=== PATIENT | female | born 1955 | race Caucasian/White ===

== ENCOUNTER → 2017-06-03 | Outpatient (CLI) | payer BC ==
--- NOTE | 2017-06-04 17:56 | WOMENS IMAGING REPORT ---
EXAM DESCRIPTION: 3D SCREENING MAMMO BILAT COMPLETED DATE/TIME: 06/03/2017 8:01 am REASON FOR STUDY: ROUTINE SCREENING; Z12.31 Z12.31 ENCNTR SCREEN MAMMOGRAM FOR MALIGNANT NEOPLASM O F JASWANT COMPARISON: Multiple since 2010 TECHNIQUE: Standard craniocaudal and mediolateral oblique views of each breast recorded using digita l acquisition and breast tomosynthesis. LIMITATIONS: None. FINDINGS: No masses, calcifications or architectural distortion. No areas of suspicion. Read with the assistance of CAD. .[facility] - R2 Cenova Version 1.3 .[facility] - R2 Cenova Version 1.3 .[facility] - R2 Cenova Version 2.4 .[facility]2 Cenova Version 2.4 .[facility] - R2 Blood Tester Fowl Version 9.2 IMPRESSION: NORMAL MAMMOGRAM. BIRADS 1. BREAST DENSITY: b. There are scattered areas of fibroglandular density. BIRAD: 1 NEGATIVE RECOMMENDATION: ROUTINE SCREENING Please continue yearly bilateral screening tomosynthesis in May 2018 COMMENT: The patient has been notified of the results by letter per [place] requirements. Additional no tification policies are in place for contacting patient with suspicious or incomplete findings. Quality ID #[id number]: The [employer] recommends an annual screening mammogram for women aged 40 years or over. This facility utilizes a reminder system to ensure that all patients receive reminder letters, and/or direct phone calls for appointments. This includes reminders for routine scr eening mammograms, diagnostic mammograms, or other Breast Imaging Interventions when appropriate. Th is patient will be placed in the appropriate reminder system. The [employer] (ACR) has developed recommendations for screening MRI of the breast s in certain patient populations, to be used in conjunction with mammography. Breast MRI surveillanc e may be appropriate for women with more than 20% lifetime risk of developing breast cancer as deter mined by genetic testing, significant family history of the disease, or history of mantle radiation f or Hodgkins Disease. ACR Practice Guidelines 2008. DBT Technology DBT is a type of tomographic mammography. With conventional mammography, overlapping breast tissue ma y make lesions difficult to detect, even with good compression. DBT uses an x-ray tube that rotates a round the breast, taking images at different angles. These images are then combined to create thin sl ices of the breast that the radiologist can view as a 3D reconstruction. The [employer] unit can perform full-field digital mammograms (2D imaging); or DBT (3D imaging); or both, in a combination mode that quickly performs both the mammogram and the tomosynthesis scan while the breast is still compressed. PQRS 6045F: Fluoroscopic imaging is not utilized for breast tomosynthesis. TECHNICAL DOCUMENTATION: FINDING NUMBER: (1) ASSESSMENT: (1) JOB ID: [id number] [employer]- All Rights Reserved
== END ==
LOC: WI 07:29
PROVIDERS: ATTEND Family Medicine
DX: Z12.31 Encounter for screening mammogram for malignant neoplasm of breast (principal)
CPT/HCPCS: 77063; G0202; 77067

== ENCOUNTER 2017-08-11 15:48 | Emergency (ER) | payer BC ==
--- NOTE | 2017-08-11 16:25 | ER Document Report ---
ED Medical Screen (RME) - General Chief Complaint: Abdominal Pain Stated Complaint: ABDOMINAL PAIN Time Seen by Provider: 08/11/17 16:11 Mode of Arrival: Ambulatory Information source: Patient Notes: 61-year-old female presents with complaints of abdominal pain constipation vomiting. She notes symptoms started this morning, patient has been on opioids for knee replacement I have greeted and performed a rapid initial assessment of this patient. A comprehensive ED assessment and evaluation of the patient, analysis of test results and completion of the medical decision making process will be conducted by additional ED providers. PHYSICAL EXAMINATION: GENERAL: Well-appearing, well-nourished and tearful HEAD: Atraumatic, normocephalic. EYES: Pupils equal round extraocular movements intact, conjunctiva are normal. ENT: Nares patent NECK: Normal range of motion LUNGS: No respiratory distress Musculoskeletal: Normal range of motion NEUROLOGICAL: Normal speech, normal gait. PSYCH: Normal mood, normal affect. SKIN: Warm, Dry, normal turgor, no rashes or lesions noted. TRAVEL OUTSIDE OF THE [place] IN LAST 30 DAYS: No - Related Data Allergies/Adverse Reactions: No Known Allergies Allergy (Verified 08/11/17 15:50) Home Medications: Current Home Medications Bupropion HCl [Wellbutrin Xl 300mg 24hr Tablet] 1 tab PO DAILY 08/11/17 [History ] Hydrocodone/Acetaminophen [Hydrocodone-Acetamin 2.5-325] 1 tab PO BID 08/11/17 [ History] Sennosides [Senna Laxative] 1 tab PO DAILY PRN 08/11/17 [History] Past Medical History - Social History Frequency of alcohol use: Rare Drug Abuse: None - Past Medical History Cardiac Medical History: Reports: Hx Hypertension - MEDICATED Denies: Hx Heart Attack Pulmonary Medical History: Denies: Hx Asthma Neurological Medical History: Denies: Hx Cerebrovascular Accident, Hx Seizures Renal/ Medical History: Denies: Hx Peritoneal Dialysis GI Medical History: Denies: Hx Hepatitis, Hx Hiatal Hernia, Hx Ulcer Infectious Medical History: Denies: Hx Hepatitis Past Surgical History: Reports: Hx Appendectomy, Hx Hysterectomy, Hx Orthopedic Surgery - right knee replaced, Hx Tonsillectomy. Denies: Hx Mastectomy, Hx Open Heart Surgery, Hx Pacemaker Physical Exam - Vital signs Vitals: Temp Pulse Resp BP Pulse Ox 98.0 F 102 H 16 145/89 H 98 08/11/17 15:50 08/11/17 15:50 08/11/17 15:50 08/11/17 15:50 08/11/17 15:50 Course - Vital Signs Vital signs: Temp Pulse Resp BP Pulse Ox 98.0 F 102 H 16 145/89 H 98 08/11/17 15:50 08/11/17 15:50 08/11/17 15:50 08/11/17 15:50 08/11/17 15:50
[2017-08-11 16:39] LABS: ABSOLUTE LYMPHOCYTES (AUTO) 0.9 10^3/uL (0.5-4.7); ABSOLUTE MONOCYTES (AUTO) 0.3 10^3/uL (0.1-1.4); ABSOLUTE NEUT (AUTO) 6.3 10^3/uL (1.7-8.2); BASOPHILS % (AUTO) 0.4 % (0-2); EOSINOPHILS % (AUTO) 0.3 % (0-6); HEMATOCRIT 38.2 % (36.0-47.0); HEMOGLOBIN 13.1 g/dL (12.0-15.5); HGB HCT DIFFERENCE 1.1; LYMPHOCYTES % (AUTO) 11.8 % (13-45); MEAN CORPUSCULAR HEMOGLOBIN 29.6 pg (27.0-33.4); MEAN CORPUSCULAR HGB CONC 34.2 g/dL (32.0-36.0); MEAN CORPUSCULAR VOLUME 87 fl (80-97); MONOCYTES % (AUTO) 4.6 % (3-13); RED BLOOD COUNT 4.42 10^6/uL (3.72-5.28); SEGMENTED NEUTROPHILS % (AUTO) 82.9 % (42-78); WHITE BLOOD COUNT 7.6 10^3/uL (4.0-10.5)
[2017-08-11] MEDS ORDERED: MORPHINE SULFATE 10 MG/ML INJ IV ONE (16:39)
[2017-08-11] MEDS ORDERED: NORMAL SALINE 1000 ML 1,000 ML IV ONE (16:39)
[2017-08-11] MEDS ORDERED: ONDANSETRON HCL INJ/PF 4 MG/2 ML SDV IV ONE (16:39)
[2017-08-11 16:57] LABS: ALANINE AMINOTRANSFERASE 29 U/L (9-52); ALBUMIN 4.9 g/dL (3.5-5.0); ALKALINE PHOSPHATASE 123 U/L (38-126); ANION GAP 15 (5-19); ASPARTATE AMINO TRANSFERASE 21 U/L (14-36); BILIRUBIN,DIRECT 0.2 mg/dL (0.0-0.4); BILIRUBIN,TOTAL 0.6 mg/dL (0.2-1.3); BLOOD UREA NITROGEN 13 mg/dL (7-20); CALCIUM 10.4 mg/dL (8.4-10.2); CARBON DIOXIDE 26 mmol/L (22-30); CHLORIDE 95 mmol/L (98-107); CREATININE RESULT 0.51 mg/dL (0.52-1.25); GLUCOSE 125 mg/dL (75-110); LIPASE 66.6 U/L (23-300); SODIUM 135.9 mmol/L (137-145); TOTAL PROTEIN 7.7 g/dL (6.3-8.2)
--- NOTE | 2017-08-11 17:34 | ER Document Report ---
ED General - General Chief Complaint: Abdominal Pain Stated Complaint: ABDOMINAL PAIN Time Seen by Provider: 08/11/17 16:11 Mode of Arrival: Ambulatory Information source: Patient Notes: 61-year-old female presents with complaints of constipation nausea vomiting over the past day. Patient notes symptoms started this morning, denies any fevers or chills, denies any similar episodes. Patient has never had any abdominal surgeries and obstruction. Patient has been taking narcotics for knee replacement and believe she has become constipated from this. TRAVEL OUTSIDE OF THE [place] IN LAST 30 DAYS: No - HPI Onset: This morning Onset/Duration: Sudden Quality of pain: Cramping Severity: Mild Pain Level: 1 Associated symptoms: Nausea, Vomiting Exacerbated by: Food Relieved by: Denies Similar symptoms previously: No Recently seen / treated by doctor: No - Related Data Allergies/Adverse Reactions: No Known Allergies Allergy (Verified 08/11/17 15:50) Home Medications: Current Home Medications Bupropion HCl [Wellbutrin Xl 300mg 24hr Tablet] 1 tab PO DAILY 08/11/17 [History ] Hydrocodone/Acetaminophen [Hydrocodone-Acetamin 2.5-325] 1 tab PO BID 08/11/17 [ History] Sennosides [Senna Laxative] 1 tab PO DAILY PRN 08/11/17 [History] Past Medical History - General Information source: Patient - Social History Smoking Status: Never Smoker Cigarette use (# per day): No Chew tobacco use (# tins/day): No Smoking Education Provided: No Frequency of alcohol use: Rare Drug Abuse: None Family History: Reviewed & Not Pertinent Patient has suicidal ideation: No Patient has homicidal ideation: No - Past Medical History Cardiac Medical History: Reports: Hx Hypertension - MEDICATED Denies: Hx Heart Attack Pulmonary Medical History: Denies: Hx Asthma Neurological Medical History: Denies: Hx Cerebrovascular Accident, Hx Seizures Renal/ Medical History: Denies: Hx Peritoneal Dialysis GI Medical History: Denies: Hx Hepatitis, Hx Hiatal Hernia, Hx Ulcer Infectious Medical History: Denies: Hx Hepatitis Past Surgical History: Reports: Hx Appendectomy, Hx Hysterectomy, Hx Orthopedic Surgery - right knee replaced, Hx Tonsillectomy. Denies: Hx Mastectomy, Hx Open Heart Surgery, Hx Pacemaker Review of Systems - Review of Systems Notes: REVIEW OF SYSTEMS: CONSTITUTIONAL : Denies fever, chills, or sweats. Denies recent illness. EENT: Denies eye, ear, throat, or mouth pain or symptoms. Denies nasal or sinus congestion or discharge. Denies throat, tongue, or mouth swelling or difficulty swallowing. CARDIOVASCULAR: Denies chest pain. Denies palpitations or racing or irregular heart beat. Denies ankle edema. RESPIRATORY: Denies cough, cold, or chest congestion. Denies shortness of breath, difficulty breathing, or wheezing. GASTROINTESTINAL: Patient admits to abdominal pain nausea vomiting constipation GENITOURINARY: Denies difficulty urinating, painful urination, burning, frequency, blood in urine, or discharge. FEMALE GENITOURINARY: Denies vaginal bleeding, heavy or abnormal periods, irregular periods. Denies vaginal discharge or odor. MUSCULOSKELETAL: Denies back or neck pain or stiffness. Denies joint pain or swelling. SKIN: Denies rash, lesions or sores. HEMATOLOGIC : Denies easy bruising or bleeding. LYMPHATIC: Denies swollen, enlarged glands. NEUROLOGICAL: Denies confusion or altered mental status. Denies passing out or loss of consciousness. Denies dizziness or lightheadedness. Denies headache. Denies weakness or paralysis or loss of use of either side. Denies problems with gait or speech. Denies sensory loss, numbness, or tingling. Denies seizures. PSYCHIATRIC: Denies anxiety or stress. Denies depression, suicidal ideation, or homicidal ideation. ALL OTHER SYSTEMS REVIEWED AND NEGATIVE. PHYSICAL EXAMINATION: GENERAL: Well-appearing, well-nourished and in no acute distress. HEAD: Atraumatic, normocephalic. EYES: Pupils equal round and reactive to light, extraocular movements intact, conjunctiva are normal. ENT: Nares patent, oropharynx clear without exudates. Moist mucous membranes. NECK: Normal range of motion, supple without lymphadenopathy LUNGS: Breath sounds clear to auscultation bilaterally and equal. No wheezes rales or rhonchi. HEART: Regular rate and rhythm without murmurs ABDOMEN: Soft, minimally tender in the left lower quadrant no rebound or guarding Female : deferred Musculoskeletal: Normal range of motion, no pitting or edema. No cyanosis. Ice pack on right knee NEUROLOGICAL: Cranial nerves grossly intact. Normal speech, normal gait. Normal sensory, motor exams PSYCH: Normal mood, normal affect. SKIN: Warm, Dry, normal turgor, no rashes or lesions noted. Dictation was performed using [employer] English voice recognition software Physical Exam - Vital signs Vitals: Temp Pulse Resp BP Pulse Ox 98.0 F 102 H 16 145/89 H 98 08/11/17 15:50 08/11/17 15:50 08/11/17 15:50 08/11/17 15:50 08/11/17 15:50 Course - Re-evaluation Re-evalutation: 08/11/17 17:35 My concern is for an obstruction, oral and IV contrast have been ordered 08/11/17 19:[address] no otherwise no obstruction seen, patient looks well is in no distress, I will discharge home if she feels much better. Patient will be given GoLYTELY. Patient has been given very strict return precautions After performing a Medical Screening Examination, I estimate there is LOW risk for ACUTE APPENDICITIS, BOWEL OBSTRUCTION, ACUTE CHOLECYSTITIS, PERFORATED DIVERTICULITIS, INCARCERATED HERNIA, PANCREATITIS, PELVIC INFLAMMATORY DISEASE, PERFORATED ULCER, ECTOPIC , or TUBO-OVARIAN ABSCESS, thus I consider the discharge disposition reasonable. Also, there is no evidence or peritonitis , sepsis, or toxicity. I have reevaluated this patient multiple times and no significant life threatening changes are noted. The patient and I have discussed the diagnosis and risks, and we agree with discharging home with close follow-up with the understanding that symptoms and presentations can change. We also discussed returning to the Emergency Department immediately if new or worsening symptoms occur. We have discussed the symptoms which are most concerning (e.g., bloody stool, fever, changing or worsening pain, vomiting) that necessitate immediate return. - Vital Signs Vital signs: Temp Pulse Resp BP Pulse Ox 98.0 F 102 H 16 145/89 H 98 08/11/17 15:50 08/11/17 15:50 08/11/17 15:50 08/11/17 15:50 08/11/17 15:50 - Laboratory Result Diagrams: 08/11/17 16:30 08/11/17 16:30 Laboratory results interpreted by me: 08/11/17 08/11/17 16:30 16:30 Seg Neutrophils % 82.9 H Lymphocytes % 11.8 L Sodium 135.9 L Chloride 95 L Creatinine 0.51 L Glucose 125 H Calcium 10.4 H - Diagnostic Test Radiology reviewed: Image reviewed, Reports reviewed Discharge - Discharge Clinical Impression: Constipation Qualifiers: Constipation type: unspecified constipation type Qualified Code(s): K59.00 - Constipation, unspecified Nausea & vomiting Qualifiers: Vomiting type: unspecified Vomiting Intractability: non-intractable Qualified Code(s): R11.2 - Nausea with vomiting, unspecified Condition: Stable Disposition: HOME, SELF-CARE Instructions: Abdominal Pain ([facility]), Constipation ([facility]) Additional Instructions: Follow up with your physician tomorrow for further care or return to the ED IMMEDIATELY if symptoms worsen or new concerns occur. If you cannot afford to follow up with your primary care physician a list of low cost clinics have been provided at the end of your discharge papers as well. Prescriptions: Peg 3350/Na Sulf,Bicarb,Cl/KCl [Golytely Solution 4000 ml] 4,000 ml PO DAILY #1 bottle
--- NOTE | 2017-08-11 19:03 | RADIOLOGY REPORT (SQ) ---
EXAM DESCRIPTION: CT ABDOMEN WITH IV ORAL CONT COMPLETED DATE/TIME: 08/11/2017 6:43 pm REASON FOR STUDY: constipation vomiting , concern for obstruction COMPARISON: None. TECHNIQUE: CT scan of the abdomen and pelvis performed with intravenous and oral contrast using jennifer hilario scanning technique with dynamic intravenous contrast injection. Images reviewed with lung, soft t issue, and bone windows. Reconstructed coronal and sagittal MPR images reviewed. Delayed images for e valuation of the urinary system also acquired. All images stored on PACS. All CT scanners at this facility use dose modulation, iterative reconstruction, and/or weight based d osing when appropriate to reduce radiation dose to as low as reasonably achievable (ALARA). [facility]: Dose Right [facility]: CareDose [facility]: Dose Right [facility]: Teradose 4D [facility]: Classkick CONTRAST TYPE AND DOSE: contrast/concentration: Isovue 370.00 mg/ml; Total Contrast Delivered: 67.0 ml; Total Saline Delivered: 65.0 ml RENAL FUNCTION: BUN 13 creatinine 0.51. RADIATION DOSE: CT Rad equipment meets quality standard of care and radiation dose reduction techniq ues were employed. CTDIvol: 6.0 - 8.3 mGy. DLP: 720 mGy-cm.. LIMITATIONS: None. FINDINGS: LOWER CHEST: No significant findings. No nodules or infiltrates. LIVER: Normal size. 1 cm cyst. No solid masses. No dilated ducts. SPLEEN: Normal size. No focal lesions. PANCREAS: No masses. No significant calcifications. No adjacent inflammation or peripancreatic fluid collections. Pancreatic duct not dilated. GALLBLADDER: No identified stones by CT criteria. No inflammatory changes to suggest cholecystitis. ADRENAL GLANDS: No significant masses or asymmetry. RIGHT KIDNEY AND URETER: No solid masses. No significant calcification. No hydronephrosis or hydroure ter. LEFT KIDNEY AND URETER: No solid masses. No significant calcification. No hydronephrosis or hydrouret er. AORTA AND VESSELS: No aneurysm. No dissection. Renal arteries, SMA, celiac without stenosis. RETROPERITONEUM: No retroperitoneal adenopathy, hemorrhage or masses. BOWEL AND PERITONEAL CAVITY: Prominent stool throughout the colon and rectum. No obstruction. No vis ualized masses. No free fluid. No inflammatory changes or thickening of bowel wall. APPENDIX: Surgically absent. PELVIS: No significant masses. Normal bladder. No free fluid. ABDOMINAL WALL: No masses. No hernias. BONES: No significant or acute findings. OTHER: No other significant finding. IMPRESSION: 1. PROMINENT STOOL THROUGHOUT THE COLON AND RECTUM. NO EVIDENCE OF BOWEL OBSTRUCTION OR OTHER SIGNIF ICANT FINDINGS. 2. SMALL CYST IN THE LIVER. NO OTHER SIGNIFICANT OR ACUTE FINDINGS IN THE ABDOMEN OR PELVIS. TECHNICAL DOCUMENTATION: JOB ID: [id number] Quality ID # [id number]: Final reports with documentation of one or more dose reduction techniques (e.g., Au tomated exposure control, adjustment of the mA and/or kV according to patient size, use of iterative reconstruction technique) 2010 [employer]- All Rights Reserved
[2017-08-11 19:21] VITALS: BP 127/79
== END 2017-08-11 19:21 | disposition home or self-care (01) ==
LOC: ER 15:48
DX: K59.00 Constipation, unspecified (principal); R11.2 Nausea with vomiting, unspecified; R10.9 Unspecified abdominal pain; Z79.899 Other long term (current) drug therapy
CPT/HCPCS: 99284; 96361; 96374; 36415; 83690; 85025; 80053; 74160; J2270; J2405; J7030

== ENCOUNTER → 2017-08-15 | Outpatient (CLI) | payer BC ==
--- NOTE | 2017-08-15 10:56 | RADIOLOGY REPORT (SQ) ---
EXAM DESCRIPTION: U/S EXTREMITY NONVASCULAR LTD COMPLETED DATE/TIME: 08/15/2017 10:34 am REASON FOR STUDY: M79.622 PAIN IN LEFT UPPER ARM M79.622 PAIN IN LEFT UPPER ARM COMPARISON: Mammogram dated 06/03/2017 and ultrasound dated 11/21/2015. TECHNIQUE: Real-time and static grayscale imaging performed of the upper-outer left breast targeted to the area of clinical/mammographic concern. Selected color Doppler images recorded. LIMITATIONS: None. FINDINGS: MASS: No mass identified. Normal glandular tissue. OTHER: No other significant finding. IMPRESSION: No suspicious findings detected by ultrasound. BIRAD: 1 Negative. RECOMMENDATION: RECOMMENDED FOLLOW-UP: Follow-up as clinically indicated. COMMENT: The [employer] (ACR) has developed recommendations for screening MRI of the breasts in certain patient populations, to be used in conjunction with mammography. Breast MRI s urveillance may be appropriate for women with more than 20% lifetime risk of developing breast cancer as determined by genetic testing, significant family history of the disease, or history of mantle r adiation for Hodgkins Disease. ACR Practice Guidelines 2008. TECHNICAL DOCUMENTATION: JOB ID: [id number] [employer]- All Rights Reserved
== END ==
LOC: RAD 09:41
PROVIDERS: ATTEND Physician Assistant
DX: M79.622 Pain in left upper arm (principal)
CPT/HCPCS: 76882

== ENCOUNTER 2018-01-10 16:28 | Emergency (ER) | payer BC ==
[2018-01-10 18:13] LABS: ABSOLUTE EOSINOPHILS # (AUTO) 0.1 10^3/uL (0.0-0.6); ABSOLUTE LYMPHOCYTES (AUTO) 1.9 10^3/uL (0.5-4.7); ABSOLUTE MONOCYTES (AUTO) 0.6 10^3/uL (0.1-1.4); ABSOLUTE NEUT (AUTO) 3.5 10^3/uL (1.7-8.2); BASOPHILS % (AUTO) 0.6 % (0-2); EOSINOPHILS % (AUTO) 2.2 % (0-6); HEMATOCRIT 37.2 % (36.0-47.0); HEMOGLOBIN 12.7 g/dL (12.0-15.5); LYMPHOCYTES % (AUTO) 31.2 % (13-45); MEAN CORPUSCULAR HEMOGLOBIN 30.5 pg (27.0-33.4); MEAN CORPUSCULAR HGB CONC 34.1 g/dL (32.0-36.0); MEAN CORPUSCULAR VOLUME 89 fl (80-97); MONOCYTES % (AUTO) 9.1 % (3-13); PLATELET COUNT 317 10^3/uL (150-450); RED BLOOD COUNT 4.17 10^6/uL (3.72-5.28); RED CELL DISTRIBUTION WIDTH 12.5 % (11.5-14.0); SEGMENTED NEUTROPHILS % (AUTO) 56.9 % (42-78); TOTAL CELLS COUNTED % (AUTO) 100 %; WHITE BLOOD COUNT 6.1 10^3/uL (4.0-10.5)
[2018-01-10 18:18] LABS: ALANINE AMINOTRANSFERASE 26 U/L (9-52); ALBUMIN 4.4 g/dL (3.5-5.0); ALKALINE PHOSPHATASE 113 U/L (38-126); ANION GAP 11 (5-19); ASPARTATE AMINO TRANSFERASE 26 U/L (14-36); BILIRUBIN,DIRECT 0.4 mg/dL (0.0-0.4); BILIRUBIN,TOTAL 0.4 mg/dL (0.2-1.3); BLOOD UREA NITROGEN 26 mg/dL (7-20); CALCIUM 9.7 mg/dL (8.4-10.2); CARBON DIOXIDE 27 mmol/L (22-30); CHLORIDE 103 mmol/L (98-107); CREATINE KINASE 96 U/L (30-135); GLUCOSE 100 mg/dL (75-110); SODIUM 141.3 mmol/L (137-145); TOTAL PROTEIN 7.1 g/dL (6.3-8.2)
--- NOTE | 2018-01-10 18:19 | EKG REPORT ---
SEVERITY:- NORMAL ECG - SINUS RHYTHM : Confirmed by: Anastacio Gaona MD 10-Jan-2018 18:18:41
--- NOTE | 2018-01-10 18:21 | RADIOLOGY REPORT (SQ) ---
EXAM DESCRIPTION: CHEST SINGLE VIEW COMPLETED DATE/TIME: 01/10/2018 5:59 pm REASON FOR STUDY: chest pain COMPARISON: None. EXAM PARAMETERS: NUMBER OF VIEWS: One view. TECHNIQUE: Single frontal radiographic view of the chest acquired. RADIATION DOSE: NA LIMITATIONS: None. FINDINGS: LUNGS AND PLEURA: No opacities, masses or pneumothorax. No pleural effusion. MEDIASTINUM AND HILAR STRUCTURES: No masses. Contour normal. HEART AND VASCULAR STRUCTURES: Heart normal in size. Normal vasculature. BONES: No acute findings. HARDWARE: None in the chest. OTHER: No other significant finding. IMPRESSION: NO ACUTE RADIOGRAPHIC FINDING IN THE CHEST. TECHNICAL DOCUMENTATION: JOB ID: [id number] [id number] 2010 [employer]- All Rights Reserved Reading location - IP/workstation name: [employer]
[2018-01-10 18:29] LABS: CREATINE KINASE MB 1.14 ng/mL (<4.55)
[2018-01-10 18:34] LABS: TROPONIN I < 0.012 ng/mL
--- NOTE | 2018-01-10 18:53 | ER Document Report ---
ED General - General Chief Complaint: Chest Pain Stated Complaint: CHEST PAIN Time Seen by Provider: 01/10/18 17:25 Notes: Patient is a 62-year-old female with a past medical history of coronary vasospasm, anxiety and hyperlipidemia who presents with long-standing intermittent chest discomfort which she states has been more frequent over the past 2-3 weeks. Patient describes it as an intermittent pressure stabbing like sensation to her left chest without radiation of the pain. No associated shortness of breath, nausea, vomiting or diaphoresis. She has known history of coronary artery disease. She has had cardiac catheterizations without stent placement or discovery of coronary artery disease. She was referred to the emergency department by her primary care doctor. She denies any pants of my assessment and is asking to go home. She states that her pain is become much more frequent since moving into her mother's home to help take care of her and attributes her symptoms largely to anxiety. TRAVEL OUTSIDE OF THE [place] IN LAST 30 DAYS: No - Related Data Allergies/Adverse Reactions: No Known Allergies Allergy (Verified 01/10/18 16:30) Past Medical History - General Information source: Patient - Social History Smoking Status: Never Smoker Chew tobacco use (# tins/day): No Frequency of alcohol use: Occasional Drug Abuse: None Lives with: Parents Family History: Reviewed & Not Pertinent Patient has suicidal ideation: No Patient has homicidal ideation: No - Past Medical History Cardiac Medical History: Reports: Hx Hypertension - MEDICATED Denies: Hx Heart Attack Pulmonary Medical History: Denies: Hx Asthma Neurological Medical History: Denies: Hx Cerebrovascular Accident, Hx Seizures Renal/ Medical History: Denies: Hx Peritoneal Dialysis GI Medical History: Denies: Hx Hepatitis, Hx Hiatal Hernia, Hx Ulcer Infectious Medical History: Denies: Hx Hepatitis Past Surgical History: Reports: Hx Appendectomy, Hx Hysterectomy, Hx Orthopedic Surgery - right knee replaced, Hx Tonsillectomy. Denies: Hx Mastectomy, Hx Open Heart Surgery, Hx Pacemaker Review of Systems - Review of Systems Notes: Constitutional: Negative for fever. HENT: Negative for sore throat. Eyes: Negative for visual changes. Cardiovascular: Positive for chest pain now resolved Respiratory: Negative for shortness of breath. Gastrointestinal: Negative for abdominal pain, vomiting or diarrhea. Genitourinary: Negative for dysuria. Musculoskeletal: Negative for back pain. Skin: Negative for rash. Neurological: Negative for headaches, weakness or numbness. 10 point ROS negative except as marked above and in HPI. Physical Exam - Vital signs Vitals: Temp Pulse Resp BP Pulse Ox 98.1 F 77 18 138/77 H 97 01/10/18 16:42 01/10/18 16:42 01/10/18 16:42 01/10/18 16:42 01/10/18 16:42 Interpretation: Normal Notes: PHYSICAL EXAMINATION: GENERAL: Well-appearing, well-nourished and in no acute distress. HEAD: Atraumatic, normocephalic. EYES: Pupils equal round and reactive to light, extraocular movements intact, sclera anicteric, conjunctiva are normal. ENT: nares patent, oropharynx clear without exudates. Moist mucous membranes. NECK: Normal range of motion, supple without lymphadenopathy LUNGS: Breath sounds clear to auscultation bilaterally and equal. No wheezes rales or rhonchi. HEART: Regular rate and rhythm without murmurs ABDOMEN: Soft, nontender, normoactive bowel sounds. No guarding, no rebound. No masses appreciated. EXTREMITIES: Normal range of motion, no pitting or edema. No cyanosis. NEUROLOGICAL: No focal neurological deficits. Moves all extremities spontaneously and on command. PSYCH: Normal mood, normal affect. SKIN: Warm, Dry, normal turgor, no rashes or lesions noted. Course - Re-evaluation Re-evalutation: 01/10/18 18:51 Presentation of chest pain in an otherwise well appearing patient. Low clinical suspicion for ACS given clinical history, exam, EKG without ST elevations or depressions, and negative initial troponin. HEART score less than or equal to 3. PE also seems unlikely given clinical history, absence of tachycardia or dyspnea. Patient is PERC criteria negative. CXR without evidence of pneumothorax or pneumonia. No widened mediastinum. Aortic dissection also seems unlikely given history, symmetric pulses, CXR, and vitals. Patient reports the chest pain is on going to at least the past several months and is not new or different today. I do not see any indication for repeat troponin cycling given his history and low clinical concern for life-threatening etiology. At this time will discharge with return precautions and follow-up recommendations. Verbal discharge instructions given a the bedside and opportunity for questions given. Medication warnings reviewed. Patient is in agreement with this plan and has verbalized understanding of return precautions and the need for primary care follow-up in the next 24-72 hours. - Vital Signs Vital signs: Temp Pulse Resp BP Pulse Ox 98.6 F 77 13 121/80 99 01/10/18 19:02 01/10/18 16:42 01/10/18 19:02 01/10/18 19:02 01/10/18 19:02 - Laboratory Result Diagrams: 01/10/18 17:37 01/10/18 17:37 Laboratory results interpreted by me: 01/10/18 17:37 BUN 26 H - Diagnostic Test Radiology reviewed: Image reviewed, Reports reviewed Radiology results interpreted by me: 01/10/18 18:52 Chest x-ray: No acute infiltrate or pneumothorax - EKG Interpretation by Me Additional EKG results interpreted by me: 01/10/18 18:52 Sinus rhythm. Rate 80. No ST elevations or depressions. QTC is 466. Discharge - Discharge Clinical Impression: Recurrent chest pain Condition: Good Disposition: HOME, SELF-CARE Additional Instructions: You were seen today for chest pain. The exact cause of your pain is unclear. However, based on your cardiac enzyme testing, chest x-ray, and EKG it does not appear that it is from an immediately life-threatening cause at this time. Although your testing here is normal is critical that you follow-up with your primary care physician for continued evaluation of this chest pain and possible stress testing. I recommended you see your physician within the next 24-48 hours to be evaluated for consideration of a stress test. Please return to emergency department immediately if you have worsening of your chest pain, shortness of breath, vomiting, become unable to exert yourself due to pain or difficulty breathing, you pass out, or have any pain that radiates into your arms, jaw, or back. Please also return if you have any additional symptoms that are concerning to you. Referrals: IVAN DOTSON MD [Primary Care Provider] - Follow up as needed
[2018-01-10 19:18] VITALS: BP 121/80
== END 2018-01-10 19:27 | disposition home or self-care (01) ==
LOC: ER 16:28
DX: R07.9 Chest pain, unspecified (principal); I10 Essential (primary) hypertension; Z90.710 Acquired absence of both cervix and uterus
CPT/HCPCS: 36415; 71045; 80053; 82550; 82553; 84484; 85025; 93005; 93010; 99285

== ENCOUNTER → 2018-12-02 | Outpatient (CLI) | payer BC ==
--- NOTE | 2018-12-02 13:13 | WOMENS IMAGING REPORT ---
EXAM DESCRIPTION: 3D SCREENING MAMMO BILAT COMPLETED DATE/TIME: 12/02/2018 8:13 am REASON FOR STUDY: Z12.31 ROUTINE 3D BILATERAL SCREENING Z12.31 ENCNTR SCREEN MAMMOGRAM FOR MALIGNAN T NEOPLASM OF J[place] COMPARISON: 06/03/2017 and 11/21/2015. TECHNIQUE: Standard craniocaudal and mediolateral oblique views of each breast recorded using digita l acquisition and breast tomosynthesis. LIMITATIONS: None. FINDINGS: No masses, calcifications or architectural distortion. No areas of suspicion. Read with the assistance of CAD. .[facility] - R2 [employer] Version 1.3 .[facility] - R2 Cenova Version 2.1 .[facility] - R2 C[employer] Version 2.4 .[facility] [place] - R2 Cenova Version 2.4 .[facility] - R2 [employer] Version 9.2 IMPRESSION: NORMAL MAMMOGRAM. BIRADS 1. BREAST DENSITY: b. There are scattered areas of fibroglandular density. BIRAD: 1 NEGATIVE RECOMMENDATION: ROUTINE SCREENING COMMENT: The patient has been notified of the results by letter per SA requirements. Additional no tification policies are in place for contacting patient with suspicious or incomplete findings. Quality ID #225: The [employer] recommends an annual screening mammogram for women aged 40 years or over. This facility utilizes a reminder system to ensure that all patients receive reminder letters, and/or direct phone calls for appointments. This includes reminders for routine scr eening mammograms, diagnostic mammograms, or other Breast Imaging Interventions when appropriate. Th is patient will be placed in the appropriate reminder system. The [employer] (ACR) has developed recommendations for screening MRI of the breast s in certain patient populations, to be used in conjunction with mammography. Breast MRI surveillanc e may be appropriate for women with more than 20% lifetime risk of developing breast cancer as deter mined by genetic testing, significant family history of the disease, or history of mantle radiation f or Hodgkins Disease. ACR Practice Guidelines 2008. DBT Technology DBT is a type of tomographic mammography. With conventional mammography, overlapping breast tissue ma y make lesions difficult to detect, even with good compression. DBT uses an x-ray tube that rotates a round the breast, taking images at different angles. These images are then combined to create thin sl ices of the breast that the radiologist can view as a 3D reconstruction. The [employer] unit can perform full-field digital mammograms (2D imaging); or DBT (3D imaging); or both, in a combination mode that quickly performs both the mammogram and the tomosynthesis scan while the breast is still compressed. PQRS 6045F: Fluoroscopic imaging is not utilized for breast tomosynthesis. TECHNICAL DOCUMENTATION: FINDING NUMBER: (1) ASSESSMENT: (1) JOB ID: [id number] [employer]- All Rights Reserved Reading location - IP/workstation name: [email or web address]
== END ==
LOC: WI 07:38
PROVIDERS: ATTEND Physician Assistant
DX: Z12.31 Encounter for screening mammogram for malignant neoplasm of breast (principal)
CPT/HCPCS: 77063; 77067

== ENCOUNTER → 2019-11-13 | Outpatient (CLI) | payer MEDICARE ==
--- NOTE | 2019-11-13 14:08 | RADIOLOGY REPORT (SQ) ---
EXAM DESCRIPTION: MRA HEAD WITHOUT IMAGES COMPLETED DATE/TIME: 11/13/2019 1:57 pm REASON FOR STUDY: R42 DIZZINESS AND GIDDINESS G45.9 TRANSIENT CEREBRAL ISCHEMIC ATTACK, UNSPE R42 D IZZINESS AND GIDDINESS G45.9 TRANSIENT CEREBRAL ISCHEMIC ATTACK, UNSPECIFIED COMPARISON: None. TECHNIQUE: Axial 3-D eiyn-bt-nneyzs acquisition imaging performed through the brain in the area of t he [place] of [place]. Images reformatted using 3-D MIPS. LIMITATIONS: None. FINDINGS: SOURCE IMAGES: No unexpected findings on source images. No large masses. 3-D MIP: No aneurysm. No occlusions. No significant stenosis. OTHER: No other significant finding. IMPRESSION: NORMAL MRA OF THE [place] OF [place]. TECHNICAL DOCUMENTATION: JOB ID: [id number] 2010 [employer]- All Rights Reserved Reading location - IP/workstation name: [email or web address]
--- NOTE | 2019-11-13 14:16 | RADIOLOGY REPORT (SQ) ---
EXAM DESCRIPTION: MRI HEAD WITHOUT IMAGES COMPLETED DATE/TIME: 11/13/2019 1:57 pm REASON FOR STUDY: R42 DIZZINESS AND GIDDINESS G45.9 TRANSIENT CEREBRAL ISCHEMIC ATTACK, UNSPE R42 D IZZINESS AND GIDDINESS G45.9 TRANSIENT CEREBRAL ISCHEMIC ATTACK, UNSPECIFIED COMPARISON: None. TECHNIQUE: Multiplanar imaging includes non-contrasted T1, T2, FLAIR, and diffusion with ADC map seq uences. Images stored on PACS. LIMITATIONS: None. FINDINGS: ANATOMY: No anomalies. Normal vascular flow voids. Pituitary fossa normal. CSF SPACES: Normal in size and contour. No hemorrhage. CEREBRUM: Sulci and gyri normal in size and contour. Small scattered areas of increased white matter signal on FLAIR imaging. No evidence of hemorrhage, mass, or extraaxial fluid collection. POSTERIOR FOSSA: No signal alteration. No hemorrhage. No edema, masses or mass effect. Internal ligia tory canals, cerebello-pontine angles, mastoids normal. DIFFUSION IMAGING: Negative for acute or sub-acute infarction. ORBITS: No masses. Globes normal. PARANASAL SINUSES: No fluid levels. Mucosa normal. OTHER: No other significant finding. IMPRESSION: Mild chronic microvascular ischemia with no acute intracranial imaging findings. EVIDENCE OF ACUTE STROKE: NO. TECHNICAL DOCUMENTATION: JOB ID: [id number] 2010 [employer]- All Rights Reserved Reading location - IP/workstation name: [email or web address]
== END ==
LOC: RAD 12:32
PROVIDERS: ATTEND Physician Assistant
DX: G45.9 Transient cerebral ischemic attack, unspecified (principal); R42 Dizziness and giddiness
CPT/HCPCS: 70544; 70551

== ENCOUNTER → 2019-12-10 | Outpatient (CLI) | payer MEDICARE ==
[2019-12-10 12:56] LABS: ABSOLUTE EOSINOPHILS # (AUTO) 0.1 10^3/uL (0.0-0.6); ABSOLUTE LYMPHOCYTES (AUTO) 1.4 10^3/uL (0.5-4.7); ABSOLUTE MONOCYTES (AUTO) 0.5 10^3/uL (0.1-1.4); ABSOLUTE NEUT (AUTO) 2.9 10^3/uL (1.7-8.2); BASOPHILS % (AUTO) 0.8 % (0-2); EOSINOPHILS % (AUTO) 1.4 % (0-6); HEMATOCRIT 34.9 % (36.0-47.0); HEMOGLOBIN 12.5 g/dL (12.0-15.5); LYMPHOCYTES % (AUTO) 28.2 % (13-45); MEAN CORPUSCULAR HEMOGLOBIN 31.5 pg (27.0-33.4); MEAN CORPUSCULAR HGB CONC 35.7 g/dL (32.0-36.0); MEAN CORPUSCULAR VOLUME 88 fl (80-97); MONOCYTES % (AUTO) 10.6 % (3-13); PLATELET COUNT 331 10^3/uL (150-450); RED BLOOD COUNT 3.96 10^6/uL (3.72-5.28); RED CELL DISTRIBUTION WIDTH 12.5 % (11.5-14.0); TOTAL CELLS COUNTED % (AUTO) 100 %
[2019-12-10 13:17] LABS: ALBUMIN 4.5 g/dL (3.5-5.0); ALKALINE PHOSPHATASE 110 U/L (38-126); ANION GAP 10 (5-19); ASPARTATE AMINO TRANSFERASE 31 U/L (14-36); BILIRUBIN,TOTAL 0.5 mg/dL (0.2-1.3); BLOOD UREA NITROGEN 20 mg/dL (7-20); CALCIUM 9.4 mg/dL (8.4-10.2); CARBON DIOXIDE 28 mmol/L (22-30); CHLORIDE 94 mmol/L (98-107); GLUCOSE 106 mg/dL (75-110)
== END ==
LOC: OD 12:27
PROVIDERS: ATTEND Physician Assistant
DX: J02.9 Acute pharyngitis, unspecified (principal)
CPT/HCPCS: 36415; 80053; 85025; 86308; 87070; 87880

== ENCOUNTER → 2020-02-02 | Outpatient (CLI) | payer MEDICARE, OTHER ==
--- NOTE | 2020-02-02 16:01 | NEURO WORKBENCH EEG REPORT ---
EEG Report Patient: Jes Schreiber ID: [id number] Referring Doctor: Victoriano Mcgill Date: 02/02/2020 Reason for study: Evaluate Epileptiform activity Medications: Claritar, Nitroglycerin, Landaprost, Wellbutrin, Prozac, Synthroid, Amlodipine History: This is a 64 year old female with a history of headaches, hypercholesterolemia, tachycardia, hypothyroidism, and ataxia. This EEG was requested for evaluation of epileptiform activity. EEG Interpretation: This EEG was recorded during wakefulness very minimal drowsiness. The EEG is dominated by excessive myogenic artifact diffusely throughout the recording, which largely obscured the background EEG activity. The EEG was reviewed with high frequency filters set at 70 Hz, 30 Hz, and 15 Hz. The awake EEG very rarely showed a posterior dominant rhythm (PDR) of approximately 10 Hz. The remainder of the background consisted of low a amplitude 10-12 Hz alpha activity and beta activity (some of the noted beta activity may have been filtered myogenic artifact). The EEG is symmetric in amplitudes and frequencies. There was occasional Mu rhythm noted in the bilateral central regions. Photic stimulation resulted in excellent photic driving, and there was no epileptiform activity elicited with photic stimulation. Hyperventilation resulted in no appreciable change in the background and no epileptiform activity was elicited. Minimal drowsiness was recorded with the appearance of fragmentary diffuse theta activity, but no normal sleep architecture was noted. State I and II sleep were not achieved. There were no epileptiform abnormalities (no sharp waves and no spikes). There were no seizures. The EKG showed a regular rhythm with typically 70-80 beats per minute. EEG Impression: This EEG is within normal limits for age, but overall of rather poor quality and of poor diagnostic utility given the prominent myogenic artifact throughout the recording. There was no epileptiform activity or seizures. A single normal routine EEG does not rule out the possibility of epilepsy. If there is high clinical suspicion for epilepsy, then additional EEG evaluation should be considered with a sleep-deprived EEG or more prolonged EEG monitoring. INTERPRETING NEUROLOGIST: Javier Daniel MD Board certified by the [employer] in Neurology, Clinical Neurophysiology, and Sleep Medicine [facility]
== END ==
LOC: NEURO 08:30
PROVIDERS: ATTEND Pediatrics
DX: R25.1 Tremor, unspecified (principal); R27.0 Ataxia, unspecified; Z79.899 Other long term (current) drug therapy
CPT/HCPCS: 95819

== ENCOUNTER → 2020-08-17 | Outpatient (CLI) | payer MEDICARE, OTHER ==
--- NOTE | 2020-08-17 09:43 | WOMENS IMAGING REPORT ---
EXAM DESCRIPTION: U/S ABDOMEN LIMITED IMAGES COMPLETED DATE/TIME: 08/17/2020 9:13 am REASON FOR STUDY: R94.5 ABNORMAL RESULTS OF LIVER FUNCTION STUDIES R94.5 ABNORMAL RESULTS OF LIVER FUNCTION STUDIES COMPARISON: CT abdomen pelvis dated 08/11/2017 TECHNIQUE: Dynamic and static grayscale images acquired of the abdomen and recorded on PACS. Additio nal selected color Doppler and spectral images recorded. LIMITATIONS: None. FINDINGS: PANCREAS: Visualized portions the pancreas are normal in appearance. The tail is obscured by overlying bowel gas. LIVER: No significant masses. Normal echotexture. Small cyst demonstrated on prior CT is not apprec iated on today's ultrasound. LIVER VASCULATURE: Normal directional flow of the main portal vein and hepatic veins. GALLBLADDER: No stones. Normal wall thickness. No pericholecystic fluid. ULTRASOUND-DETECTED GUZMAN'S SIGN: Negative. INTRAHEPATIC DUCTS AND COMMON DUCT: CBD and intrahepatic ducts normal caliber. No filling defects. INFERIOR VENA CAVA: Normal flow. AORTA: No aneurysm. RIGHT KIDNEY: Normal size. Normal echogenicity. No solid or suspicious masses. No hydronephrosis. No calcifications. PERITONEAL AND RIGHT PLEURAL SPACE: No ascites or effusions. OTHER: No other significant findings. IMPRESSION: NORMAL RIGHT UPPER QUADRANT ULTRASOUND. TECHNICAL DOCUMENTATION: JOB ID: [id number] 2010 [employer]- All Rights Reserved Reading location - IP/workstation name: [email or web address]
== END ==
LOC: WI 08:21
PROVIDERS: ATTEND Internal Medicine Gastroenterology
DX: R94.5 Abnormal results of liver function studies (principal)
CPT/HCPCS: 76705

== ENCOUNTER → 2020-09-09 | Outpatient (CLI) | payer MEDICARE, OTHER ==
--- NOTE | 2020-09-09 13:18 | RADIOLOGY REPORT (SQ) ---
EXAM DESCRIPTION: U/S RETROPERITON (RENAL/AORTA) IMAGES COMPLETED DATE/TIME: 09/09/2020 1:06 pm REASON FOR STUDY: LEFT FLANK PAIN R10.9 UNSPECIFIED ABDOMINAL PAIN COMPARISON: None. TECHNIQUE: Dynamic and static grayscale images acquired of the kidneys and bladder and recorded on P ACS. Additional selected color Doppler and spectral images recorded. LIMITATIONS: None. FINDINGS: RIGHT KIDNEY: Normal size, 9.1 cm. Normal echogenicity. No solid or suspicious masses. No hydronephrosis. No calcifications. LEFT KIDNEY: Normal size, 9.3 cm. Normal echogenicity. No solid or suspicious masses. No hydronephro sis. No calcifications. BLADDER: The urinary bladder is incompletely filled. Ureteral jets are not seen. No obvious mass is present. OTHER FINDINGS: No other significant finding. IMPRESSION: NORMAL RENAL AND BLADDER ULTRASOUND. TECHNICAL DOCUMENTATION: JOB ID: [id number] 2010 [employer]- All Rights Reserved Reading location - IP/workstation name: [email or web address]
== END ==
LOC: RAD 12:41
PROVIDERS: ATTEND Physician Assistant
DX: R10.9 Unspecified abdominal pain (principal)
CPT/HCPCS: 76770